=== PATIENT | female | born 1990 | race Caucasian/White ===

== ENCOUNTER 2016-05-30 | Outpatient (CLI) | payer OTHER | END 2016-05-30 02:28 | disposition critical access hospital (66) | CPT/HCPCS: A0425; A0427 ==

== ENCOUNTER 2016-05-30 02:41 | Emergency (ER) | payer OTHER ==
[2016-05-30] MEDS ORDERED: MORPHINE 2 MG/ML SYRINGE IVP STA (02:45)
[2016-05-30] MEDS ORDERED: ONDANSETRON 4 MG/2 ML VIAL IVP STA (02:45)
[2016-05-30] MEDS ORDERED: SODIUM CHLORIDE 0.9% 1,000 ML IV ONE (02:45)
[2016-05-30] MEDS ORDERED: ONDANSETRON 4 MG/2 ML VIAL ONE (02:56)
[2016-05-30] MEDS ORDERED: MORPHINE 2 MG/ML SYRINGE ONE (02:56)
[2016-05-30] MEDS ORDERED: LORazepam 2 MG/ML SYRINGE IVP STA (04:06)
[2016-05-30] MEDS ORDERED: LORazepam 2 MG/ML SYRINGE ONE (04:13)
== END 2016-05-30 05:50 | disposition home or self-care (01) ==
DX: K52.9 Noninfective gastroenteritis and colitis, unspecified (principal); J45.909 Unspecified asthma, uncomplicated
CPT/HCPCS: 36415; 74177; 80053; 81003; 81025; 83605; 83690; 85025; 87275; 87276; 96361; 96374; 96375; 99284; 99285; J2060